=== PATIENT | female | born 1985 ===

== ENCOUNTER 2018-03-25 17:01 | Emergency (ER) | payer MEDICARE, MEDICAID ==
[2018-03-25 17:16] VITALS: BP 122/81
[2018-03-25] MEDS ORDERED: diphenhydrAMINE 50 MG/ML SDV IM ONE (19:17)
[2018-03-25] MEDS ORDERED: Haloperidol Lactate 5 MG/ML SDV IM ONE (19:17)
[2018-03-25] MEDS ORDERED: Ondansetron 4 MG Tab.DIS PO ONE (19:17)
--- NOTE | 2018-03-25 19:23 | EDM.PDOC ---
ED HPI GENERAL MEDICAL PROBLEM - General Chief Complaint: Headache Stated Complaint: HEADACHE Time Seen by Provider: 03/25/18 19:00 Source of Information: Reports: Patient History Limitations: Reports: No Limitations - History of Present Illness INITIAL COMMENTS - FREE TEXT/NARRATIVE: Patient is a 32-year-old female who presents to the E.D. complaining of headache all over her head. Patient states the headache started yesterday has progressively gotten worse. She's tried all her home remedies with no luck. She gets about 15-20 headaches every month. This headache is no different than previous episodes. She has some hyperacusis with photophobia with no vision changes. She had a few episodes of nausea with emesis today. Otherwise has been able to drink fluids. There's been no documented fever, stiff neck, neck or back pain, sore throat, sinus congestion, ear pain, chest pain, sob, abdominal pain, n/t extremities, or any focal neurological deficits. Headache Pain Score (Numeric/FACES): 9 - Related Data Allergies Allergy/AdvReac Type Severity Reaction Status Date / Time chlorpromazine HCl Allergy Difficulty Verified 08/05/16 12:48 [From Thorazine] Breathing metronidazole [From Flagyl] Allergy Cannot Verified 08/05/16 12:48 Remember Metronidazole HCl Allergy Cannot Verified 08/05/16 12:48 [From Flagyl] Remember metoclopramide HCl AdvReac Anxiety Verified 08/05/16 12:48 [From Reglan] Home Meds: Home Meds Cyanocobalamin (Vitamin B12) [Vitamin B12] 100 mcg PO DAILY 02/07/14 [History] Ketorolac [Toradol] 60 mg IM ASDIRECTED PRN 02/07/14 [History] Loratadine [Claritin] 10 mg PO DAILY 02/07/14 [History] Ondansetron HCl [Zofran] 4 mg PO ASDIRECTED PRN 02/07/14 [History] SUMAtriptan Succinate [Imitrex] 100 mg PO DAILY PRN 02/07/14 [History] Cyclobenzaprine HCl [Amrix] 15 mg PO BEDTIME 09/20/14 [History] Phenylephrine/Dm/Acetaminop/Gg [Sudafed PE Pressure+Pain+Cold] 2 tab PO ASDIRECTED PRN 06/23/15 [History] Amoxicillin/Potassium Clav [Augmentin 500-125 Tablet] 1 each PO BID #14 tablet 04/27/16 [Rx] Cholecalciferol (Vitamin D3) [Vitamin D3] 2,000 unit PO DAILY 04/27/16 [History] Hydrocodone/Acetaminophen [Hydrocodon-Acetaminophen 5-325] 1 each PO Q4H PRN [History] Past Medical History - Past Health History Medical/Surgical History: Denies Medical/Surgical History Other Musculoskeletal History: neck and shoulder pain Neurological History: Reports: Migraines Other Hematologic History: D3 deficiency - Past Surgical History HEENT Surgical History: Reports: Naso-Sinus Surgery Social & Family History - Living Situation & Occupation Occupation: Other ED ROS GENERAL - Review of Systems Review Of Systems: ROS reveals no pertinent complaints other than HPI. - Physical Exam Exam: See Below Exam Limited By: No Limitations General Appearance: Alert, WD/WN, Mild Distress (sunglasses in place. ) Eye Exam: Bilateral Eye: EOMI, Normal Inspection, PERRL Ears: Hearing Grossly Normal Nose: Normal Inspection Throat/Mouth: Normal Voice, No Airway Compromise Head Exam: Atraumatic, Normocephalic Neck: Normal Inspection, Supple, Non-Tender, Full Range of Motion. No: Lymphadenopathy (L), Lymphadenopathy (R) Respiratory/Chest: No Respiratory Distress, Lungs Clear, Normal Breath Sounds, No Accessory Muscle Use, Chest Non-Tender Cardiovascular: Normal Peripheral Pulses, Regular Rate, Rhythm Neuro Exam (Abbreviated): Alert, Oriented, CN II-XII Intact, Normal Cognition, No Motor/Sensory Deficits, Other (Cerebellar fx intact: finger to nose, rapid alternating movements. No weakness to upper/lower extremites. ) Course - Vital Signs Last Recorded V/S: Last Vital Signs Temp 98.5 F 03/25/18 17:15 Pulse 73 03/25/18 17:15 Resp 20 03/25/18 17:15 BP 122/81 03/25/18 17:15 Pulse Ox 100 03/25/18 17:15 - Orders/Labs/Meds Meds: Medications Discontinued Medications Generic Name Dose Route Start Last Admin Trade Name Freq PRN Reason Stop Dose Admin Diphenhydramine HCl 50 mg 03/25/18 19:17 03/25/18 19:55 Benadryl IM 03/25/18 19:18 50 mg ONETIME ONE Administration Haloperidol Lactate 5 mg 03/25/18 19:17 03/25/18 19:55 Haldol IM 03/25/18 19:18 5 mg ONETIME ONE Administration Ondansetron HCl 4 mg 03/25/18 19:17 03/25/18 19:25 Zofran Odt PO 03/25/18 19:18 4 mg ONETIME ONE Administration - Re-Assessments/Exams Free Text/Narrative Re-Assessment/Exam: Headache is similar to previous episodes. I ordered Haldol 5 mg IM, Benadryl 50 mg IM, Zofran 4 mg ODT. Patient has already received Toradol 2 today. She has had all these medications in the past with no issues. 03/25/18 19:49 Per nursing staff, patient wishes to be discharged home since we are not starting IV fluids. Patients oral mucosa is moist. Vital signs are stable. She does not require any IV fluids. Patient upon admission to the E.D. was requesting fentanyl and or dilaudid. Patient will be discharged home with instructions as documented. Departure - Departure Time of Disposition: 19:50 Disposition: Home, Self-Care 01 Condition: Good Clinical Impression: Migraine Qualifiers: Migraine type: unspecified Status migrainosus presence: without status migrainosus Intractability: not intractable Qualified Code(s): G43.909 - Migraine, unspecified, not intractable, without status migrainosus - Discharge Information Instructions: Migraine Headache, [id number] Referrals: Linda Gutierrez MD [Primary Care Provider] - Forms: ED Department Discharge Additional Instructions: Suggest going home and finding a dark room to sleep in. Continue taking all your home medications as prescribed. Follow-up with PCP in the next few days for reevaluation. Return to the ED if you develop any new or worsening symptoms. No driving this evening since receiving a sedative medication.
== END 2018-03-25 19:55 | disposition home or self-care (01) ==
LOC: JD.ED 17:01
DX: G43.909 Migraine, unspecified, not intractable, without status migrainosus (principal); Z88.8 Allergy status to other drugs, medicaments and biological substances; Z88.1 Allergy status to other antibiotic agents; Z79.899 Other long term (current) drug therapy
CPT/HCPCS: 96372; 99283; A9270; J1200; J1630